=== PATIENT | male | born 1935 | race Caucasian/White ===

== ENCOUNTER 2021-02-27 01:22 | Inpatient (IN) | payer MEDICARE, BC ==
[~2021-02-27] VITALS: Ht 170.2 cm; Wt 75.2 kg
[2021-02-27] VITALS (11 sets, daily range): BP systolic 110–160; BP diastolic 47–98; PULSE 64–93; TEMP 97.4–98.6
[~2021-02-27 01:22] MED LIST: ASPI325T6 PO; ASPIRIN E.C. 8181 MG PO; CALCIUM 600600 M2 PO; EPA FISH OIL1000 MG PO; FOSAMAX70 MG PO; HCTZ PO; K-TAB20 PO; LASIX 40MG TABL40 MG PO; LASIX20 MG PO; LISINOPRIL5 MG PO; LOPRESSOR 550 MG/TAB PO; METOPROLOL50 MG PO; NORCO 325 MG-51 TAB PO; POTASSIUM CL 220 MEQ PO; PRILOSEC 20MG20 MG PO; PROTONIX 40MG T40 MG PO; SIMVASTATIN80 MG PO; VITAMIN C BUFF500 MG PO; VITAMIN C500 MG PO; XALATAN EYE DROPS OP; ZOCOR 40MG40 MG PO; ZYLOPRIM 100MG100 MG PO
--- NOTE | 2021-02-27 02:00 | NUR ---
PATIENT IS ALERT AND ORIENTED X4 BUT DROWSY. SON, NAVID, AT BEDSIDE. PATIENT GOT UP TO ROOM 344 FROM EMS. PATIENT HAS BROKEN RIGHT HIP. PATIENT GETTIN GBLOOD TRANSFUSION OF A POSITIVE BLOOD AT 125ML/HR. VSS. PATIENT HAS IV TO RIGHT AC. PATIENT PROVIDED WITH MULTIPLE WARM BLANKETS. TEMP ON ARRIVAL WAS 97.4. PATIENT HAS COLOSTOMY. PATIENT HAS MERCEDES DRAINING STRAW COLORED AND CLEAR URINE. PATIENT HAS GOOD PULSES ON BILATERAL LOWER EXTREMITIES. PATIENT IS ON 4L NC. PATIENT RATES PAIN ON 9/10 SCALE BUT SAYS IT COMES AND GOES. AWAITING ORDERS FOR PAIN MEDS. PATIENT DENIES FURTHER NEEDS AT THIS TIME. CALL LIGHT WITHIN REACH. ADMISSIONS ASSESSMENTS COMPLETE.
[2021-02-27] MEDS ORDERED: MAALOX ADVANCE148 ML PO (02:26)
[2021-02-27] MEDS ORDERED: FERROUS SU325 MG/TAB PO (02:27)
[2021-02-27] MEDS ORDERED: ATROVENT I0.2 MG/1 M IH (02:29)
[2021-02-27] MEDS ORDERED: ALBUTEROL0.83 MG/ML IH (02:30)
[2021-02-27] MEDS ORDERED: METAMUCIL3.4 GM/DOS PO (02:32)
[2021-02-27] MEDS ORDERED: VITAMIN D31000 I1 PO (02:33)
[2021-02-27] MEDS ORDERED: NORVASC 5MG5 MG/TAB PO (02:34)
[2021-02-27] MEDS ORDERED: NAMENDA5 MG PO (02:35)
[2021-02-27] MEDS ORDERED: COZAAR 25MG25 MG/TAB PO (02:36)
[2021-02-27] MEDS ORDERED: FLOMAX 0.40.4 MG/CAP PO (02:38)
--- NOTE | 2021-02-27 02:50 | NUR ---
PATIENT BLOOD TRANSFUSION COMPLETE. POST SET OF VITAL SIGNS STABLE. NO FURTHER NEEDS AT THIS TIME.
[2021-02-27 05:38] LABS: MUCOUS Present /lpf; PH 5 (5-8); SQUAMOUS EPITHELIAL 0-2 /hpf; URINE APPEARANCE Hazy; URINE BACTERIA Rare /hpf; URINE BILIRUBIN Negative (NEGATIVE); URINE BLOOD Negative (NEGATIVE); URINE COLOR Yellow; URINE GLUCOSE Negative (NEGATIVE); URINE KETONE Negative (NEGATIVE); URINE LEUKOCYTE ESTERASE Negative (NEGATIVE); URINE NITRATE Negative (NEGATIVE); URINE PROTEIN(semi-quant) 1+ (NEGATIVE); URINE UROBILINOGEN Negative (NEGATIVE)
[2021-02-27 05:46] LABS: COLLECTION METHOD CLEAN CATCH
--- NOTE | 2021-02-27 06:15 | NUR ---
PATIENT DID WELL THROUGHOUT NIGHT. SLEPT MOST OF NIGHT. ICE PACK TO RIGHT HIP. NO FURTHER NEEDS AT THIS TIME. CALL LIGHT WITHIN REACH. WILL REPORT TO DAYSHIFT.
--- NOTE | 2021-02-27 06:48 | NUR ---
Report received from LAUREN Lamas. Pt. resting in bed, denies needs at this time. Bed alarm on, call light and belongings in reach.
[2021-02-27 07:08] LABS: INR 1.3 (0.8-3.0); PROTHROMBIN TIME 14.1 SECONDS (9.7-12.8)
[2021-02-27 07:17] LABS: CALCIUM 9.1 mg/dL (8.4-10.2); CREATININE, serum 2.53 mg/dL (0.72-1.25); MAGNESIUM 2.3 mg/dL (1.6-2.6); PHOSPHOROUS 3.1 mg/dL (2.3-4.7); POTASSIUM 5.2 mmol/L (3.5-4.5)
[2021-02-27 07:20] LABS: MEAN CELL VOLUME 88 fl (80.0-100.0); MEAN CORPUSCULAR HGB CONC 32 g/dl (33.0-37.0); MEAN PLATELET VOLUME 9.8 fl (7.4-10.4); PLATELET COUNT 368 K/mm3 (130-400); RED BLOOD COUNT 3.11 M/mm3 (4.20-5.60); REDCELL DISTRIBUTION WIDTH-CV 17.6 % (11.5-14.5)
[2021-02-27 07:22] LABS: HEMATOCRIT 27.4 % (42.0-52.0); HEMOGLOBIN 8.8 g/dl (13.5-18.0); MEAN CORPUSCULAR HEMOGLOBIN 28 pg (27.0-31.0)
[2021-02-27 08:14] LABS: ANISOCYTOSIS 1+; LYMPHOCYTE 3 % (20.0-51.0); NEUTROPHILS 91 % (42.0-75.2); PLATELET ESTIMATE NORMAL (NORMAL)
[2021-02-27] MEDS ORDERED: REMERON 15M15 MG/TA1 PO (08:27)
[2021-02-27] MEDS ORDERED: LOPRESSOR 225 MG/TAB PO (08:28)
--- NOTE | 2021-02-27 10:33 | NUR ---
factory worker met with patient to discuss discharge plan. Patient reports that he lives at home alone in [place]. Patient reports that prior to this event he has been fully independent and did not utilize any DME to assist with mobility. States that his children live near him and check in on him " morning, noon and night". Patient states that he has never had to use oxygen, but he is currently on 3L in room. Patient states his PCP is Dr. Streeter and he utilizes [facility] in [place] with no cost difficulty. Discussed the need for placement post surgery and the patient verbalizes that he ould like to go to [facility]. Attempt made to call his daughter Marissa but was unsuccessful. Contact made to Michelle rehabilitation case coordinator at [facility] with referral. Clinical documentation faxed. Discharge plan: Referral made to [facility].
[2021-02-27 16:53] LABS: PLEURAL FLUID RBC 0 /mm3 (0-0); PLEURAL FLUID WBC 124 /mm3
[2021-02-27 16:55] LABS: GLUCOSE,PLEURAL FLUID 97 mg/dL; PLEURAL FLUID APPEARANCE CLEAR; PLEURAL FLUID COLOR YELLOW; TOTAL PROTEIN,PLEURAL FLUID 2.5 gm/dL
--- NOTE | 2021-02-27 17:55 | NUR ---
Pt. progressing w/ plan of care. Pt had a Left Lung thoracentesis today. Pt. was just repositioned and pt. noted to be in pain. Pt. received PRN morphine today for pain and it made the pt. very groggy and tired. DARIEN Hollins called this evening to make aware pt. did not have any PRN non-narcotic pain medications. New order obtained for tylenol. Pt.'s bed alarm is on, call light and belongings in reach.
--- NOTE | 2021-02-27 23:43 | NUR ---
PT APPEARS TO BE SLEEPING IN BED @ THIS TIME. EYES ARE CLOSED ET RESPIRATIONS UNLABORED. PT IS OCCASIONALLY HEARD MUMBLING IN SLEEP. PT IS ASKED IF HE IS HAVING ANY PAIN ET IS STARTLED AWAKE. OXYGEN VIA NC ON @ 4L. PT IS ORIENTED TO SELF BUT NOT PLACE, SITUATION OR TIME. PT IS PLEASANT ET JOKES WITH STAFF WHILE AWAKE. WHEN ADMINISTERING PT'S HS PILLS, PT HAD DIFFICULTY FOLLOWING DIRECTIONS ET SWALLOWING. PT ATTEMPTS TO CHEW FISH OIL CAPSULE THEN SPITS OUT, CAPSULE IS WASTED. OTHER PILLS ARE CRUSHED ET GIVEN IN CHOCOLATE PUDDING. PT HAS NO DIFFICULTY SWALLOWING PUDDING OR WATER. KEELEY HOSE ON UNAFFECTED LEFT LEG, SCDs ON BILATERAL LEGS. MERCEDES CATHETER DRAINING, URINE IS CLEAR YELLOW. PT WILL BECOME NPO AFTER MIDNIGHT FOR PLANNED SURGERY TOMORROW. BED ALARM ON, CALL LIGHT WITHIN REACH. ALARM IS ON, CALL LIGHT WITHIN REACH.
[2021-02-28] VITALS (13 sets, daily range): BP systolic 116–147; BP diastolic 40–78; PULSE 61–93; TEMP 97–98.7
--- NOTE | 2021-02-28 01:58 | NUR ---
PT IS FOUND IN BED AWAKE WITH A LARGE AMOUNT OF BLOOD ON HIS GOWN ET LINENS. IVF TUBING IS FOUND TORE APART ET BLOOD HAD BACKFLOWED FROM PERIPHERAL IV ON RIGHT AC. IV IS FLUSHED ET REMAINS PATENT, DRESSING INTACT, NO REDNESS OR SWELLING @ SITE. IVF PUMP TUBING REPLACED ET RESTARTED. PT IS NOW ORIENTED TO SELF, PLACE ET SITUATION. PT STATES THAT HE KNOWS THAT HE BROKE HIS HIP ET IS HAVING SURGERY. PT REORIENTED TO TIME. PT STATES THAT HE DOES NOT KNOW WHAT HAPPENED TO IV ET APOLOGIZES REPEATEDLY FOR THE MESS. PT'S LINENS ET GOWN CHANGED. REPOSITIONED IN BED WITH 2 ASSIST. PT GROANS WHEN MOVED. O2 ON VIA NC. RESPIRATIONS UNLABORED. BED ALARM ON, CALL LIGHT WITHIN REACH.
--- NOTE | 2021-02-28 04:58 | NUR ---
PT IS AWAKE, FOUND HOLDING HIS COLOSTOMY BAG THAT HAS STOOL IN IT AND PUTTING HIS HANDS INTO IT. PT STATES THAT HE WANTS TO CHANGE THE BAG ET ASKS WHERE HE IS AT. PT REORINETED TO PLACE ET SITUATION. PT IS CLEANED WITH BED BATH WIPES, LINENS CHANGED. COLOSTOMY BAG IS REPLACED AFTER SKIN AROUND STOMA IS CLEANED. STOMA IS BEEFY RED, SURROUNDING SKIN IS INTACT. MERCEDES CATHETER REMAINS IN PLACE BUT STATLOCK HAS BEEN TAKEN OFF. STATLOCK IS REPLACED. PT EDUCATED ON USE OF CALL LIGHT. RESPIRATIONS UNLABORED. BED ALARM ON, CALL LIGHT WITHIN REACH.
--- NOTE | 2021-02-28 08:00 | NUR ---
Patient laying in bed resting. Easily awakened with verbal command, A&Ox3. VSS 5LNC O2, no reported SOB. IV CDI, fluids infusing. Patient took gown off and the nurse placed back on and put mitts on the patient. Patient was pulling at his perez catheter and IV site. Ice right leg. Ostomy CDI. Perez intact. SCD BLE. Patient NPO for a procedure. No further needs expressed. Call light within reach. Bed alarm on
[2021-02-28 08:02] LABS: BASO % 0.4 % (0.0-2.0); EOS % 0.2 % (0-4.0); GRAN % 85.8 % (42.2-75.2); LYMPH # 0.3 K/mm3 (1.2-3.4); LYMPH % 3.4 % (20.0-51.0); MEAN CELL VOLUME 88 fl (80.0-100.0); MEAN CORPUSCULAR HGB CONC 32 g/dl (33.0-37.0); MEAN PLATELET VOLUME 9.8 fl (7.4-10.4); MONO # 0.8 K/mm3 (0.1-0.6); MONO % 9.7 % (1.7-9.3); PLATELET COUNT 352 K/mm3 (130-400); RED BLOOD COUNT 3.08 M/mm3 (4.20-5.60); REDCELL DISTRIBUTION WIDTH-CV 17.4 % (11.5-14.5)
[2021-02-28 08:05] LABS: HEMOGLOBIN 8.7 g/dl (13.5-18.0); MEAN CORPUSCULAR HEMOGLOBIN 28 pg (27.0-31.0)
[2021-02-28 08:20] LABS: CALCIUM 8.7 mg/dL (8.4-10.2); CREATININE, serum 2.28 mg/dL (0.72-1.25); MAGNESIUM 1.9 mg/dL (1.6-2.6); POTASSIUM 4.8 mmol/L (3.5-4.5)
--- NOTE | 2021-02-28 08:55 | NUR ---
Nurse called the CHIP MIXING MACHINE OPERATOR to get instructions on medication administration. CHIP MIXING MACHINE OPERATOR instructed the nurse not to give any scheduled medication.
--- NOTE | 2021-02-28 09:35 | NUR ---
Patient taken by bed to the OR
--- NOTE | 2021-02-28 12:32 | NUR ---
REICEVED REPORT FROM LAUREN SKELTON ON SURGICAL. AWAITING ARRIVAL OF PT TO ICU 6.
--- NOTE | 2021-02-28 13:10 | NUR ---
RECEIVED REPORT FROM LAUREN BENNETT IN OR. AWAITING ARRIVAL OF PT TO ICU 6.
--- NOTE | 2021-02-28 13:22 | NUR ---
PT ARRIVES TO ICU 6 VIA BED. PT ON 10L OM. PT VERY SLEEPY BUT DOES MUMBLE WHEN NAME CALLED OUT. PT PLACED ON BEDSIDE CONTINUOUS MONITOR ANDART LINE HOOKED UP AND ZEROED. SEE VS FLOWSHEET. RT HIP SURGICAL DRESSING C/D/I WITH ICE ON IT. ALL PERSONAL BELONGINGS BROUGHT DOWN FROM UPSTAIRS AND FAMILY BROUGHT TO BEDSIDE. NOTED FC IN PALCE AND OSTOMY BAG.
--- NOTE | 2021-02-28 20:19 | NUR ---
PATIENT ASLEEP AWAKENS EASILY/ RIGHT HIP PAIN TOLERABLE AT 09/08/ IS PERFORMED TO 600 MLS ONLY, WILL KEEP INSTRUCTING/
[2021-03-01] VITALS (35 sets, daily range): BP systolic 99–157; BP diastolic 47–71; PULSE 64–83; TEMP 97.7–98.9; O2SAT 50–100
[2021-03-01 04:28] LABS: BASO % 0.4 % (0.0-2.0); EOS % 0.5 % (0-4.0); GRAN # 6.9 K/mm3 (1.4-6.5); GRAN % 85.7 % (42.2-75.2); LYMPH # 0.3 K/mm3 (1.2-3.4); LYMPH % 3.4 % (20.0-51.0); MEAN CELL VOLUME 88 fl (80.0-100.0); MEAN CORPUSCULAR HGB CONC 32 g/dl (33.0-37.0); MEAN PLATELET VOLUME 9.7 fl (7.4-10.4); MONO # 0.8 K/mm3 (0.1-0.6); MONO % 9.6 % (1.7-9.3); PLATELET COUNT 289 K/mm3 (130-400); RED BLOOD COUNT 2.82 M/mm3 (4.20-5.60); REDCELL DISTRIBUTION WIDTH-CV 17.5 % (11.5-14.5)
[2021-03-01 04:30] LABS: HEMATOCRIT 24.8 % (42.0-52.0); HEMOGLOBIN 7.9 g/dl (13.5-18.0); MEAN CORPUSCULAR HEMOGLOBIN 28 pg (27.0-31.0)
[2021-03-01 04:54] LABS: CALCIUM 8.6 mg/dL (8.4-10.2); CREATININE, serum 2.05 mg/dL (0.72-1.25); MAGNESIUM 1.8 mg/dL (1.6-2.6); POTASSIUM 4.4 mmol/L (3.5-4.5)
--- NOTE | 2021-03-01 07:10 | NUR ---
RECEIVED REPORT FROM LAUREN VALENCIA. PT RESTING IN BED AND TALKS TO RN AT BEDSIDE. FC PATENT AND DRAINING TO GRAVITY. PT ON 3L VIA NC. ICE PACK TO RT HIP. RT DRESSING C/D/I. VSS. CALL LIGHT WITHIN REACH.
--- NOTE | 2021-03-01 15:12 | NUR ---
RT RADIAL ART LINE DCd. PT TOLERATED WELL. VSS.
[2021-03-01 18:15] LABS: HEMOGLOBIN 8.2 g/dl (13.5-18.0)
--- NOTE | 2021-03-01 18:19 | NUR ---
REPORT GIVEN TO LAUREN TURK. PT TRANSFERRED VIA BED TO 344. ALL PERSONAL BELONGINGS SENT WITH PT.
[2021-03-01] MEDS ORDERED: METAMUCIL3.4 GM/DOS PO (19:20)
--- NOTE | 2021-03-01 21:38 | NUR ---
Patient to room 344. Upon initial assessment patient denied any pain. Lung sounds diminished and currently requiring 3 L of O2 via nasal cannula. Normal S1 and S2 sounds present, irregular rhythm. Radial and pedal pulses +2 bilaterally. Bowel sounds present. Ostomy bag located on right side. Right hip dressings clean, dry, and intact. +2 edema noted on RLE. Grimm in place, securment device in use, no kinks in tubing. Scheduled medications given. Patient denies any further needs at this time. Call light in reach. Fall precautions in place.
[2021-03-02] VITALS (7 sets, daily range): BP systolic 116–156; BP diastolic 43–85; PULSE 63–76; TEMP 97.1–98.4
--- NOTE | 2021-03-02 00:38 | NUR ---
Received report from LAUREN Escobar around 9pm. Patient resting in bed comfortably and denies any pain or needs. No acute distress noted. Call light in reach. Will continue to monitor.
--- NOTE | 2021-03-02 03:35 | NUR ---
Patient confused over the night. Patient trying to get up from bed and attempting to pull out perez catheter. Re-oriented patient frequently. Ostomy bag has moderate amount of soft brown BM. ostomy bag changed. Call light in reach. Bed alarms on. Will continue to monitor.
[2021-03-02 06:12] LABS: MEAN CELL VOLUME 90 fl (80.0-100.0); MEAN CORPUSCULAR HGB CONC 32 g/dl (33.0-37.0); MEAN PLATELET VOLUME 9.9 fl (7.4-10.4); PLATELET COUNT 309 K/mm3 (130-400); RED BLOOD COUNT 2.85 M/mm3 (4.20-5.60); REDCELL DISTRIBUTION WIDTH-CV 17.7 % (11.5-14.5)
[2021-03-02 06:13] LABS: HEMATOCRIT 25.6 % (42.0-52.0); HEMOGLOBIN 8.1 g/dl (13.5-18.0); MEAN CORPUSCULAR HEMOGLOBIN 28 pg (27.0-31.0)
[2021-03-02 06:35] LABS: CALCIUM 8.7 mg/dL (8.4-10.2); CREATININE, serum 2.07 mg/dL (0.72-1.25); POTASSIUM 3.9 mmol/L (3.5-4.5)
[2021-03-02 07:11] LABS: ANISOCYTOSIS 1+; BAND 1 % (0-10); LYMPHOCYTE 3 % (20.0-51.0); NEUTROPHILS 89 % (42.0-75.2); OVALOCYTES 1+; PLATELET ESTIMATE NORMAL (NORMAL); SCHISTOCYTES 1+; TARGET CELLS 1+
--- NOTE | 2021-03-02 07:45 | NUR ---
Pt lying in bed, confused and agitated. He does not allow me to move covers in order to do full assessment. Was not able to assess right hip dressing nor turn him for skin assessment to back side. No meds given as pt would not take. pt did pull off the stat lock, but will not allow me to replace. Ordered a house tray for him as he would not discuss what he would like. Bed alarm on
--- NOTE | 2021-03-02 09:38 | NUR ---
Clinical updates faxed to [facility]. Referral made to [facility]
--- NOTE | 2021-03-02 09:55 | NUR ---
Pt more pleasent at this time. He is currently sitting up finishing his breakfast. He did take his pills with no issues. Was able to finish with assessment. OT was in earlier and did work with pt. Bed alarm on
--- NOTE | 2021-03-02 11:09 | NUR ---
Michelle with [facility] notified me that they accept the patient for SWBD once the patient is ready for discharge. Michelle provided me a good phone number for the patient's daughter Marissa ([phone]). This sw notified Michelle that per the DARIEN Reyes, the patient will be ready for DC in a day or two. Michelle verbalized that this plan is ok as far as the acceptance, and asks that they would prefer to admit the patient before noon. Patient's daughter Marissa contacted. Notified her that we are looking to dc the patient in the next day or two and that [facility] has accepted the patient for SWBD. Asked Marissa if either herself or one of her siblings would be able to transfer. Marissa is agreeable to this and states that either herself or her bother could transfer the patient. Discharge plan: [facility] SWBD
--- NOTE | 2021-03-02 15:18 | NUR ---
Pt sleeping very soundly right now. When he was assisted to be earlier, he did ask to be left alone. Not long after, therapy was in working with him. She stated that he did not wake up enough to work with her so she just did range of motion with him in bed. Holding medications at this time as he does not wake up enough to take them. Bed alarm on and door open so pt is visible from desk
--- NOTE | 2021-03-02 16:45 | NUR ---
Woke pt for medications. He continues to need a lot of coaching on using the incentive spirometer. Earlier he did cough up a small amount of thick sputum.
--- NOTE | 2021-03-03 01:22 | NUR ---
PT AWAKE BUT DROWSY, DENIES PAIN. PT A&O TO PERSON ET PLACE, PLEASANT. STATES "I SUPPOSE I'M STILL IN [place]." RESPIRATIONS ARE UNLABORED, OXYGEN VIA NC ON @ 4L. SMALL AMOUNT OF DARK SOFT STOOL SEEN IN PT'S COLOSTOMY BAG. BED ALARM ON, CALL LIGHT WITHIN REACH. PT WAS SOMEWHAT UNCOOPERATIVE EARLIER IN NIGHT. WHEN ADMINISTERING MEDICATIONS, PT REFUSED FISH OIL CAPSULE ET STOOL SOFTENERS AFTER TAKING HIS OTHER PILLS WITH NO PROBLEMS. PT STATED THAT'S ENOUGH PILLS ET REQUESTED TO BE LEFT ALONE TO SLEEP. PT HAD ALSO REFUSED TO ALLOW ACCOUNTING CONSULTANT TO TAKE VITALS EXCEPT FOR HIS BLOOD PRESSURE ET THEN HAD RETURNED TO SLEEP.
[2021-03-03 04:03] VITALS: BP 123/60; PULSE 70; TEMP 97.4
--- NOTE | 2021-03-03 05:58 | NUR ---
PT IS AWAKE BUT DROWSY, LAYING SEMI-FOWLERS IN BED. PT IS ORIENTED TO SELF ET PLACE PT STATES THAT HE IS HAVING RIGHT HIP PAIN, RATES IT 8/10. TYLENOL PO ADMINISTERED. FRESH ICE PACK PLACED ON RIGHT HIP. PT COUGHS A MOIST SOUNDING COUGH THAT IS NOT PRODUCTIVE. RESPIRATIONS UNLABORED. OXYGEN ON VIA NC. PT DENIES OTHER NEEDS, CLOSES EYES ET RESTS QUIETLY. BED ALARM ON, CALL LIGHT WITHIN REACH.
[2021-03-03 06:44] LABS: BASO # 0.1 K/mm3 (0.0-0.2); BASO % 0.7 % (0.0-2.0); EOS # 0.2 K/mm3 (0.0-0.7); GRAN # 5.9 K/mm3 (1.4-6.5); GRAN % 79.8 % (42.2-75.2); LYMPH # 0.4 K/mm3 (1.2-3.4); LYMPH % 5.8 % (20.0-51.0); MEAN CELL VOLUME 87 fl (80.0-100.0); MEAN CORPUSCULAR HGB CONC 32 g/dl (33.0-37.0); MEAN PLATELET VOLUME 10.1 fl (7.4-10.4); MONO # 0.8 K/mm3 (0.1-0.6); MONO % 10.2 % (1.7-9.3); PLATELET COUNT 312 K/mm3 (130-400); RED BLOOD COUNT 2.77 M/mm3 (4.20-5.60); REDCELL DISTRIBUTION WIDTH-CV 17.4 % (11.5-14.5)
[2021-03-03 06:45] LABS: HEMATOCRIT 24.1 % (42.0-52.0); HEMOGLOBIN 7.8 g/dl (13.5-18.0); MEAN CORPUSCULAR HEMOGLOBIN 28 pg (27.0-31.0)
[2021-03-03 07:10] LABS: CALCIUM 8.6 mg/dL (8.4-10.2); CREATININE, serum 1.91 mg/dL (0.72-1.25); POTASSIUM 3.6 mmol/L (3.5-4.5)
[2021-03-03 08:50] VITALS: BP 115/45; PULSE 68; TEMP 97.9
--- NOTE | 2021-03-03 09:30 | NUR ---
Pt awake, alet and refusing to answer orientation questions. Pt also refusing to take PO meds - medication education provided and pt still refuses. Pt initially resistant to physical therapy. Pt partially self removed IV access MD Jc notified - new plan of care is to trend [facility] at noon and see if pt requires PRBC infusion.
--- NOTE | 2021-03-03 11:15 | NUR ---
Clinical updates faxed to raul at [facility]. Notified her that the physicians are looking at Tuesday for a dc.
--- NOTE | 2021-03-03 11:51 | NUR ---
Report received from LAUREN Contreras, at 1100. Pt sitting in recliner chair, fall precautions in place. Chair alarm on. Grimm catheter draining clear yellow urine. Colostomy to right abdomen with dark stool in bag. Incisions to right hip x2, open to air. Denies complaints at time of assessment. Telemetry on. Call light within reach.
[2021-03-03 12:07] LABS: HEMATOCRIT 26.2 % (42.0-52.0); HEMOGLOBIN 8.4 g/dl (13.5-18.0)
--- NOTE | 2021-03-03 12:12 | NUR ---
DARIEN Reyes notified of 8.4 hemaglobin. Orders not cancel unit of PRBC and 1600 labs. Will recheck in am.
[2021-03-03 12:24] VITALS: BP 120/56; PULSE 67; TEMP 98
--- NOTE | 2021-03-03 15:50 | NUR ---
Patient's daughter Marissa contacted and notified that the physicians are planning on a dc tomorrow. Marissa is agreeable to this and verbalizes that she will plan on being at the [facility] arond 1000.
[2021-03-03 15:56] VITALS: BP 131/51; PULSE 66; TEMP 97.7
--- NOTE | 2021-03-03 16:12 | NUR ---
RECEIVED REPORT FROM LAUREN TOM.
--- NOTE | 2021-03-03 16:17 | NUR ---
Daughter contacted that she may have to stop by [facility] and grab a tank of O2 before heading up here. She was concerned as to why her father is on O2 since he wasn't on it when he came in. Informed her that i would have the RN give her a call.- Phone call made to the unit. Informed community marketing coordinator [place] to have the patient's RN call the daughter to talk more about the O2 needs. Phone call made to [facility] that the patients daughter may have to stop by and grab a tank of O2 before coming up here. They state that they will have it ready for her to black pickler at the ER entrance.
--- NOTE | 2021-03-03 17:00 | NUR ---
Pt alert, oriented to person and location, disoriented to time and situation. Pt has colostomy in right lower quadrant, draining soft formed stool, brown in color. Pt has perez catheter in, draining yellow, clear. Pt has karen hose on bilateral lower extremities. Pt has diminished lung sounds noted in left lower lobe. Appearance of staple removal near umbilicus. Pt resting comfortably in bed.
[2021-03-03 19:28] VITALS: BP 124/57; PULSE 70; TEMP 97.9
[2021-03-03 22:24] VITALS: BP 102/45; PULSE 54; TEMP 97.8
--- NOTE | 2021-03-04 01:05 | NUR ---
ALERT AND O TO SELF.
[2021-03-04 04:24] VITALS: BP 115/49; PULSE 57; TEMP 97.9
[2021-03-04 06:37] LABS: BASO # 0.1 K/mm3 (0.0-0.2); BASO % 1.1 % (0.0-2.0); EOS # 0.3 K/mm3 (0.0-0.7); EOS % 3.8 % (0-4.0); LYMPH # 0.6 K/mm3 (1.2-3.4); LYMPH % 8.5 % (20.0-51.0); MEAN CELL VOLUME 88 fl (80.0-100.0); MEAN CORPUSCULAR HGB CONC 32 g/dl (33.0-37.0); MEAN PLATELET VOLUME 9.8 fl (7.4-10.4); MONO # 0.7 K/mm3 (0.1-0.6); PLATELET COUNT 304 K/mm3 (130-400); RED BLOOD COUNT 2.62 M/mm3 (4.20-5.60); REDCELL DISTRIBUTION WIDTH-CV 17.6 % (11.5-14.5)
[2021-03-04 06:42] LABS: HEMOGLOBIN 7.4 g/dl (13.5-18.0); MEAN CORPUSCULAR HEMOGLOBIN 28 pg (27.0-31.0)
[2021-03-04 07:02] LABS: CALCIUM 8.4 mg/dL (8.4-10.2); CREATININE, serum 2.25 mg/dL (0.72-1.25); POTASSIUM 3.8 mmol/L (3.5-4.5)
[2021-03-04 07:34] VITALS: BP 128/49; PULSE 59; TEMP 97.8
[2021-03-04] MEDS ORDERED: ASPI325T6 PO (09:41)
[2021-03-04] MEDS ORDERED: OSCAL 500 TAB500 MG PO (09:42)
[2021-03-04] MEDS ORDERED: DUO-KAPS1 CAP PO (09:43)
[2021-03-04] MEDS ORDERED: LASIX 20MG TABL20 MG PO (09:47)
--- NOTE | 2021-03-04 10:31 | NUR ---
Pt doing well this morning. He is much more alert and when I have had him previously. He was aware of where he was and why. Needed date clarified. Pt reports not having any pain. He is currently sitting up in the chair via therapy. Grimm catheter has been removed. Pt planning on transferring to [facility] per family.
--- NOTE | 2021-03-04 11:04 | NUR ---
Report called to Belkis at [facility]. Pt left with family at this time
--- NOTE | 2021-03-04 16:30 | NUR ---
Tarper attended clinical rounds with the team and patient is ready for discharge today. FRANNY provided contact information for accepting physician, Dr. Cortney Streeter to Hospitalist and then provided RN report number to patient's RN. FRANNY contacted patient's daughter, Marissa who advised she never got a call from an RN last night so she is almost to the hospital and did not black pickler oxygen. FRANNY contacted Renae at [facility] who advised they work a lot with [employer] and maybe they could have a tank delivered to the hospital so patient can use it to get to [facility], then [facility] could return the tank. FRANNY contacted Tomasa, Director at [facility] who is agreeable to the above plan. A tank was delivered to patient's room and patient discharged with Marissa providing transportation. FRANNY faxed discharge orders to [facility]. Discharge Plan: [facility] today
== END 2021-03-04 11:04 | disposition swing bed (61) | DRG 480 ==
LOC: MEDICAL 01:22 → SURG 01:41 → ICU 01:41 → SURG 03-01 18:58
PROVIDERS: Internal Medicine; Nurse Practitioner Family; Orthopaedic Surgery; Physician Assistant; Student in an Organized Health Care Education/Training Program; ADMIT Internal Medicine
PROC: 0QS634Z Reposition Right Upper Femur with Internal Fixation Device, Percutaneous Approach (ICD-10-PCS; principal; 2021-02-28 08:00)
DX: S72.141A Displaced intertrochanteric fracture of right femur, initial encounter for closed fracture (principal); J96.01 Acute respiratory failure with hypoxia; I50.33 Acute on chronic diastolic (congestive) heart failure; I13.0 Hypertensive heart and chronic kidney disease with heart failure and stage 1 through stage 4 chronic kidney disease, or unspecified chronic kidney disease; E87.1 Hypo-osmolality and hyponatremia; N18.4 Chronic kidney disease, stage 4 (severe); E87.2 Acidosis; I25.10 Atherosclerotic heart disease of native coronary artery without angina pectoris; E78.5 Hyperlipidemia, unspecified; J44.9 Chronic obstructive pulmonary disease, unspecified; K21.9 Gastro-esophageal reflux disease without esophagitis; D50.9 Iron deficiency anemia, unspecified; F32.A Depression, unspecified; F03.90 Unspecified dementia, unspecified severity, without behavioral disturbance, psychotic disturbance, mood disturbance, and anxiety; I27.20 Pulmonary hypertension, unspecified; D63.1 Anemia in chronic kidney disease; I95.9 Hypotension, unspecified; I48.91 Unspecified atrial fibrillation; E87.5 Hyperkalemia; W01.0XXA Fall on same level from slipping, tripping and stumbling without subsequent striking against object, initial encounter; Y93.89 Activity, other specified; Y92.89 Other specified places as the place of occurrence of the external cause; Z95.5 Presence of coronary angioplasty implant and graft; Z85.038 Personal history of other malignant neoplasm of large intestine; Z87.891 Personal history of nicotine dependence; I25.2 Old myocardial infarction; Z23 Encounter for immunization
CPT/HCPCS: 99223-AI; 99232-AI; 99233-AI; 99239; A9284; C1713; J0690; J1940; J2250; J2270; J2370; J2704; J2795; J7030; J7050